=== PATIENT | male | born 1965 | race Caucasian/White ===

== ENCOUNTER 2016-08-22 10:26 | Emergency (ER) | payer OTHER ==
[~2016-08-22 10:26] MED LIST: LOPE2CAP PO
[2016-08-22 10:28] VITALS: BP 105/80; PULSE 104; RESP 16; O2SAT 99
--- NOTE | 2016-08-22 10:44 | ED.REPORT ---
HPI-Trauma Minor / Fall Date of Service Aug 22, 2016 ED Provider: Darren Duval DO 50 year old male presents to the ER accompanied by his girlfriend complaining of low back pain secondary to falling off of a roof yesterday. Associated symptom of mild neck pain. He states that he became dizzy prior to the fall. For the past three days he has been ill with nausea, vomiting, and diarrhea. He also complains of numbness of his toes for several years, worsening in the past few days. This morning he had some chest discomfort, shortness of breath and diaphoresis. Patient denies LOC, and head trauma secondary to the fall. He is a poor historian. Nursing Notes Stated Complaint: SICK Chief Complaint: General Complaint Nursing Notes Reviewed: Yes Allergies: Coded Allergies: No Known Allergies (Unverified , 03/02/16) Scheduled Aspirin (Aspirin) 325 Mg Tablet 325 MG PO DAILY Loperamide (Loperamide) 2 Mg Capsule 2 MG PO Q4H General Time Seen by MD: 10:36 Chief Complaint Fall (From Roof), Other (Back Pain) Hx Obtained From: Patient Arrived By: Walk-in Onset Occurred: Yesterday Symptom Duration: Since onset Caused by: Accidental, Fall from height... (6-10 feet) Context: Occurred at: Home injury Location: Back Quality: Painful Severity: Current: Moderate Severity: Maximum: Moderate Associated with: Reports: Nausea, Neck pain, Numb extremities, Shortness of breath, Vomiting, Denies: Headache, Loss of consciousness Pertinent Negative: Pt denies other symptoms Similar Sx Previous: No Past Medical History Past Medical History None Past Surgical History L arm Smoking History Former Smoker Social History Alcohol Use: In recovery Drug Use: In recovery Ambulatory Status Independent Review of Systems Constitutional: Denies: Chills, Fever Respiratory: Reports: Shortness of breath, Denies: Non-productive cough Musculoskeletal: Reports: Back pain, Lumbar pain, Neck pain, Denies: Extremity pain, Joint pain, Thoracic pain Skin: Reports Diaphoresis Neurologic: Reports: Numbness (Toes, bilaterally), Denies: Headache, Syncope Complete sys rev & neg: except as marked. GI: Reports: Diarrhea, Nausea, Vomiting Physical Exam Physical Exam Notes: Initial Vital Signs Vital Signs (First) Date Time Temp Pulse Resp B/P Pulse Ox O2 Delivery O2 Flow Rate FiO2 08/22/16 10:28 36.7 104 16 105/80 99 Room Air Initial VS: Reviewed Head / Eyes: Atraumatic, Normocephalic Respiratory: Breath sounds normal, Clear to auscultation, No respiratory distress Cardiovascular: Regular rate & rhythm, Heart sounds normal, Intact distal pulses Skin: Warm, Dry, No cyanosis General/Constitutional: Awake, Alert, Well developed, Well nourished Neck: Atraumatic, Supple, Full range of motion, No midline vertebral tend Cardiovascular: Heart rate NL, Regular rhythm, Heart sounds NL, Cap refill not delayed, Peripheral circulation NL, Pulses = bilaterally Abdomen: Soft, McBurney's non-tender, No guarding, No rebound, No distention Tenderness/Guarding/Rebound: Positive: Tender diffuse (mild) Back: Full range of motion Flank / Spine / Paraspinal: Positive: Lumbar spine tender... Upper Extremity / MS: Atraumatic, Inspection NL, Full range of motion, No swelling, Non-tender, No erythema, No deformity, Neurologic intact, Vascular intact Wrist / Hand: Atraumatic, Inspection NL, Full range of motion, No swelling, No erythema, No snuffbox tenderness, No deformity, Neurologic intact, Vascular intact, No clubbing/cyanosis Lower Extremity / Pelvis / MS: Inspection NL, No swelling, Non-tender, No erythema, No deformity, Neurologic intact, Vascular intact, No edema Ankle / Foot: Inspection NL, No swelling, No erythema, Non-tender, No deformity , Vascular intact Neurologic: Oriented X3, Speech NL, No motor deficits, No sensory deficits, CN II - XII intact Mild paresthesia, toes only, bilaterally. Interpretation & Diagnostics Lab Results Interpretation Result Diagram: 08/22/16 1045 08/22/16 1045 Test 08/22/16 10:45 08/22/16 11:58 08/22/16 12:35 White Blood Count 6.7th/mm3 (3.8-10.1) Red Blood Count 4.38mil/mm3 (4.40-5.80) Hemoglobin 12.6g/dL (13.8-17.2) Hematocrit 35.3% (41.0-50.0) Mean Corpuscular Volume 80.6fL (81-100) Mean Corpuscular Hemoglobin 28.8pg (27.0-35.0) Mean Corpuscular Hemoglobin Concent 35.7% (32.0-37.0) Red Cell Distribution Width 13.8% (12.3-15.4) Platelet Count 140bil/L (150-400) Neutrophils (%) (Auto) 59.7% (40-74) Lymphocytes (%) (Auto) 23.1% (14-46) Monocytes (%) (Auto) 15.6% (4-12) Eosinophils (%) (Auto) 0.7% (0-5) Basophils (%) (Auto) 0.6% (0-3) Sodium Level 131mEq/L (134-144) Potassium Level 3.4mEq/L (3.5-5.2) Chloride Level 93mEq/L (97-108) Carbon Dioxide Level 20mmol/L (18-29) Blood Urea Nitrogen 11mg/dL (6-24) Creatinine 0.70mg/dL (0.76-1.27) Estimat Glomerular Filtration Rate 127mL/min (>59) Glucose Level 127mg/dL (60-99) Lactic Acid Level 0.8mmol/L (0.4-2.0) Calcium Level 8.3mg/dL (8.5-10.1) Magnesium Level 2.2mg/dL (1.6-2.6) Total Bilirubin 0.9mg/dL (0.0-1.2) Aspartate Amino Transf (AST/SGOT) 29U/L (0-50) Alanine Aminotransferase (ALT/SGPT) 22U/L (0-44) Alkaline Phosphatase 91U/L (25-150) Pro-B-Type Natriuretic Peptide 1235pg/mL (0-121) Total Protein 7.3g/dL (6.4-8.4) Albumin 3.7g/dL (3.4-5.0) Total Creatine Kinase 180U/L (21-232) Creatine Kinase MB 5.1ng/mL (0.0-10.4) Creatine Kinase MB % % (0.0-5.0) Alcohols < 10mg/dL (0-10) Troponin T 0.113ug/L (0.0-0.011) ECG Interpretation ECG Interpretation: Sinus rhythm, rate 96 Time: 10:50 Interpreted by: ED physician ECG Interpretation: Inferior T wave flattening Q wave in lead 3 Time: 13:16 Interpreted by: ED physician X-Ray Chest Interpretation Chest Xray Interpretation: IMPRESSION: 1. No acute cardiopulmonary process is suspected. 2. Mild right diaphragmatic elevation. Dictated by: Adam Day M.D. on 08/22/2016 at 10:45 Approved by: Adam Day M.D. on 08/22/2016 at 10:46 View: Portable, 1 view Interpretation / Wet Read by: Interpret - Radiologist CT Head Interpretation IMPRESSION: 1. No acute intracranial abnormalities. Dictated by: Nelson Virk M.D. on 08/22/2016 at 12:18 Approved by: Nelson Virk M.D. on 08/22/2016 at 12:20 Study: Head CT no contrast Interpretation / Wet Read by: Interpret - Radiologist CT Abd / Pelvis Interpretation IMPRESSION: 1. No traumatic injuries identified on CT. 2. Thickened appendix measuring up to 11 mm in diameter. There is mild periappendiceal stranding and a trace amount of free fluid in the right lower quadrant. The CT findings to suggest early acute appendicitis. Recommend clinical correlation. 3. Splenomegaly. This finding is nonspecific and may be secondary to infectious, inflammatory or neoplastic etiology. Recommend clinical correlation and follow up. Dictated by: Nelson Virk M.D. on 08/22/2016 at 12:27 Approved by: Nelson Virk M.D. on 08/22/2016 at 12:42 Study type: Abdominal CT IV contrast Interpretation / Wet Read by: Interpret - Radiologist Re-Eval/Medical Decision Med Decision/Clinical Course 50-year-old otherwise healthy female with a rather vague story however he fell off the roof a few days ago and has had chest pain and shortness of breath to some degree over the last few days as well. No traumatic injuries can be identified. The patient reported some vague chest discomfort with shortness of breath when laying flat over the last few days. The patient has a significantly elevated troponin, unclear initially whether this represents non-ST elevation KS or some other pathology, however ultimately may be NSTEMI. Cardiology was contacted right after the troponin was resulted and recommended a stat echo. Serial troponins continued to be elevated. Ultimately this raises a stronger suspicion for non-ST elevation KS, however the patient repeatedly denies and refuses admission. Additionally the patient had CT findings of early appendicitis, he was not significantly tender in the right lower quadrant, did not have a positive McBurney's point, normal white blood cell count, and had a significantly elevated troponin concerning ultimately for non-STEMI. Emergent surgical consult was considered however given the minimal amount of abdominal tenderness and the underlying probable cardiac etiology this was not yet performed prior to the patient's leaving AGAINST MEDICAL ADVICE. Patient was informed at each step along the process as to the results of his laboratory and imaging studies and the medical recommendations for admission. He was resistant to admission and repeatedly refused, multiple attempts were made to understand the reasons why this patient refused medical care. Patient was of sound mind to make his own medical decisions. His girlfriend was at the bedside and was also unable to convince him to stay. Ultimately he left the hospital AGAINST MEDICAL ADVICE. He left prior to receiving discharge instructions. Source of Hx: Old records Re-Evaluation/Progress #1: Time of Eval: 11:51 Re-Evaluation/Progress Note: Completed interview. Re-Evaluation/Progress #2: Time of Eval: 12:38 Re-Evaluation/Progress Note: Discussed imaging results. Discussed elevated troponin and likelihood of a non-ST elevation KS, discussed inflammation in the appendix, repeat abdominal exam and the patient is not tender significantly at this time in the right lower quadrant. Discussed with the patient that he should be admitted. Patient is resistant to admission Re-Evaluation/Progress #3: Time of Eval: 13:05 Re-Evaluation/Progress Note: Discussed lab results and need for admission. Discussed with patient that his care had been discussed with cardiology who recommended an echocardiogram as well as other laboratory testing and probable admission. Patient is resistant to this plan. Patient's girlfriend is at bedside and is complicit with the patient's resistance to be admitted Re-Evaluation/Progress #4: Time of Eval: 13:16 Re-Evaluation/Progress Note: I expressed my extreme concern for the possibility of KS and reiterated the need for admission. Patient is minimally more receptive to this plan. Will discuss with girlfriend. Re-Evaluation/Progress #5: Time of Eval: 13:30 Re-Evaluation/Progress Note: Patient continues to become more receptive to admission. Re-Evaluation/Progress #6: Time of Eval: 13:36 Re-Evaluation/Progress Note: Discussed lab and radiology results and need for admission with the patient's girlfriend. Re-Evaluation/Progress #7: Time of Eval: 14:20 Re-Evaluation/Progress Note: Patient left AMA. Consultation #1: Referral / Consult Name: Nelson Virk MD, PhD Consulted With: On-call physician (Radiology) Call Returned at: 12:36 Note: Dr. Virk called to discuss imaging results. Consultation #2: Referral / Consult Name: Zac Curran MD Consulted With: Cardiology Call Returned at: 12:53 Note: Echocardiogram, BNP, no heparin. Agrees to consult. Consultation #3: Referral / Consult Name: Zac Curran MD Consulted With: Cardiology Call Returned at: 14:21 Counseled Regarding: Diagnosis, Lab results, Need for follow-up, When/why to return to ED Discharge & Departure Impression: Primary Impression: Non-ST elevation KS (NSTEMI) Disposition: AGAINST MEDICAL ADVICE Discharge Condition All VS Reviewed: Yes Condition: Stable Patient Instructions: Myocardial Infarction (DC) Additional Instructions: You are having a heart attack. You should stay in the hospital. If you go home there is a high likelihood that you will . You are choosing to leave AGAINST MEDICAL ADVICE. Additionally, your appendix looked inflamed on the CAT scan, however your heart takes priority needs further evaluation. You should take 325 mg of aspirin daily. Return to the ER immediately if your symptoms worsen. Referrals: [facility] (PCP) Crit Care Except Billable Proc Time Spent: 30-74 minutes Services Performed: Patient management by me, Time spent at bedside, Reviewing test results, Reviewing imaging, Discussing patient care, Documentation in record, Time with fam/surrogate Critical Care Notes: See MDM Scribkatey Attestation Portions of this note were transcribed by Kandy Dawson. I, Dr. Duval, personally performed the history, physical exam and medical decision-making; I reviewed and confirmed the accuracy of the information in the transcribed note. Signed by: Geraldo Sethi, 08/22/2016 and 14:22 copies to: [facility] Darren Duval DO Aug 22, 2016 10:44 KANDY DAWSON Aug 22, 2016 10:50
[2016-08-22 11:16] LABS: BASOPHILS % (AUTO) 0.6 % (0-3); EOSINOPHILS % (AUTO) 0.7 % (0-5); MONOCYTES % (AUTO) 15.6 % (4-12); Mean Corpuscular Hemoglobin 28.8 pg (27.0-35.0); Mean Corpuscular Volume 80.6 fL (81-100); NEUTROPHILS % (AUTO) 59.7 % (40-74); Platelet Count 140 bil/L (150-400)
[2016-08-22 11:17] VITALS: BP 97/72; PULSE 85; RESP 18; O2SAT 98
[2016-08-22] MEDS ORDERED: 0.9% Sodium Chloride 1,000 ML IV SCH (11:20)
[2016-08-22] MEDS ORDERED: Ondansetron 2 mg/mL 2 mL Inj IVPUSH PRN (11:20)
[2016-08-22 11:37] LABS: Magnesium 2.2 mg/dL (1.6-2.6)
[2016-08-22 11:45] LABS: TROPONIN T 0.117 ug/L (0.0-0.011)
--- NOTE | 2016-08-22 11:47 | DRSVH ---
PROCEDURE: X-RAY CHEST ONE VIEW, PORTABLE ([id number]) INDICATIONS: SHORTNESS OF BREATH TECHNIQUE: One view of the chest was acquired. COMPARISON: None. FINDINGS: Surgical changes and devices: None. Lungs and pleura: There are low lung volumes. No focal consolidation, effusion, or pneumothorax is e vident. There is elevation of the right diaphragm. Mediastinum: Mediastinal contours appear normal. Heart size is normal. Bones and chest wall: No suspicious bony lesions. Degenerative changes of the right shoulder and sp ine are present. Overlying soft tissues appear unremarkable. IMPRESSION: 1. No acute cardiopulmonary process is suspected. 2. Mild right diaphragmatic elevation. Dictated by: Adam Day M.D. on 08/22/2016 at 10:45 Approved by: Adam Day M.D. on 08/22/2016 at 10:46
[2016-08-22 12:17] VITALS: BP 98/71; PULSE 92
--- NOTE | 2016-08-22 12:22 | DRSVH ---
PROCEDURE: CT BRAIN WITHOUT CONTRAST ([id number]) INDICATIONS: fall off roof TECHNIQUE: Noncontrast 4.5 mm thick angled axial sections acquired from the foramen magnum to the vertex, with c oronal reformats. COMPARISON: [facility], CT, BRAIN W/O CONTRAST, 12/03/2007, 18:42. FINDINGS: Image quality: Excellent. CSF spaces: Basal cisterns are patent. No extra-axial fluid collections. Ventricles are normal in size and shape. Brain: No midline shift. No intracranial masses or hemorrhage. Garcia-white matter interface is norm al. Skull and face: Calvarium and visualized facial bones are intact, without suspicious lesions. Code nasal bone fracture appears unchanged. Sinuses: Visualized sinuses and mastoids are clear. IMPRESSION: 1. No acute intracranial abnormalities. Dictated by: Nelson Virk M.D. on 08/22/2016 at 12:18 Approved by: Nelson Virk M.D. on 08/22/2016 at 12:20
[2016-08-22 12:27] LABS: Creatine Kinase 180 U/L (21-232)
--- NOTE | 2016-08-22 12:43 | DRSVH ---
PROCEDURE: CT CHEST, ABDOMEN AND PELVIS WITH CONTRAST ([id number]) INDICATIONS: fall, back pain, hypotension TECHNIQUE: After the administration of intravenous contrast, 5 mm thick sections acquired from the lung apices t o the symphysis. 5 mm thick coronal and sagittal reformats were acquired. Additional 7 mm thick cor onal maximum intensity projection (MIP) reformats acquired through the lungs. Optional 10-minute del ayed imaging may be performed from the kidneys to the bladder. For radiation dose reduction, the fol lowing was used: automated exposure control, adjustment of mA and/or kV according to patient size. COMPARISON: None. FINDINGS: Image quality: Excellent. CHEST: Lungs: No pulmonary contusions or lacerations. No acute airspace opacities. No pneumothorax or hem othorax. Central and peripheral airways appear patent and normal in caliber. Mediastinum: No mediastinal hematomas. Heart size is normal. No pericardial effusion. Thoracic ao rta and pulmonary arteries demonstrate normal size and enhancement. No mediastinal or hilar adenopat hy. Esophagus is normal in caliber. No hiatal hernia. Chest wall: No rib fractures. No subcutaneous emphysema. No axillary or supraclavicular adenopathy . Thyroid gland is normal. ABDOMEN: Solid organs: Spleen is enlarged measuring 15 cm in length. Liver is normal in size and enhancement, without lacerations. Gallbladder is normal. Biliary system is non-dilated. Pancreas enhances norm ally, without transection. No adrenal hematomas. Both kidneys enhance normally, without hydronephro sis or lacerations. Peritoneum and bowel: Appendix is thickened measuring up to 11 mm in diameter. There is mild periapp endiceal fat stranding and a trace amount of free fluid in the right lower quadrant. The CT findings suggest early acute appendicitis.. No free air. Unenhanced bowel loops demonstrate normal wall thick ness and caliber. Nodes and vessels: No retroperitoneal or mesenteric adenopathy. Aorta and inferior vena cava are no rmal in size and enhancement. Miscellaneous: No ventral hernias. PELVIS: Genitourinary: Bladder wall thickness is normal. Miscellaneous: No inguinal hernias or adenopathy. Bones: Pelvic ring and hip joints appear intact. No vertebral compression fractures. IMPRESSION: 1. No traumatic injuries identified on CT. 2. Thickened appendix measuring up to 11 mm in diameter. There is mild periappendiceal stranding and a trace amount of free fluid in the right lower quadrant. The CT findings to suggest early acute appe ndicitis. Recommend clinical correlation. 3. Splenomegaly. This finding is nonspecific and may be secondary to infectious, inflammatory or angelica plastic etiology. Recommend clinical correlation and follow up. Dictated by: Nelson Virk M.D. on 08/22/2016 at 12:27 Approved by: Nelson Virk M.D. on 08/22/2016 at 12:42
[2016-08-22 12:47] VITALS: BP 95/61; PULSE 98
[2016-08-22 14:10] VITALS: BP 92/70; PULSE 96
[2016-08-22] MEDS ORDERED: ASPI325T32 PO (14:19)
--- NOTE | 2016-08-22 15:00 | DRSVH ---
[facility] [address] [place] [address] Echocardiogram Report Name: VINNIE RAMSAY LStudy Date: 08/22/2016 Height: 72 in Hospital Exam Location: [facility] Weight: 180 lb Gender: Male BSA: 2.0 m2 : 1965 Age: 50 yrs BP: 95/61 m mHg Reason For Study: Elevated BNP Performed By: Padilla Fuentes Referring Physician: JUSTUS HELM Interpretation Summary 1) Mild concentric left ventricular hypertrophy with normal size and borderline reduced systolic function (EF about 50%). 2) Normal right ventricular size and function. 3) Mild hypokinesis of the basal to mid anterolateral wall as noted by decreased endocardial thickening 4) No significant valvular abnormalities. 5) No prior Echo available for comparison. Procedure: A two-dimensional transthoracic echocardiogram with color flow and Doppler was performed. The study quality was technically adequate. There is no prior echocardiogram noted for this patient. The patient was in normal sinus rhythm during the exam. The heart rate ranged between 85-99 bpm during the study. Left Ventricle: The left ventricle is grossly normal size. There is mild concentric left ventricular hypertrophy. Proximal septal thickening is noted. Left ventricular ejection fraction is estimated to be 50. Left ventricular systolic function is borderline reduced. Mild hypokinesis of the basal to mid anterolateral wall as noted by decreased endocardial thickening. Assessment of diastolic parameters indicates a relaxation abnormality of the left ventricle, consistent with normal filling pressures. Right Ventricle: The right ventricle is normal in size, thickness and function. Atria: The left atrial size is normal. Right atrial size is normal. The interatrial septum is intact with no evidence for an atrial septal defect. Mitral Valve: The mitral valve is normal. There is trace mitral regurgitation. Aortic Valve: The aortic valve is normal in structure and function. There is no aortic valve stenosis. No aortic regurgitation is present. Tricuspid Valve: The tricuspid valve is not well visualized, but is grossly normal. Pulmonary artery pressures cannot be estimated because of the lack of a measurable TR jet velocity. Pulmonic Valve: The pulmonic valve is not well seen, but is grossly normal. There is no pulmonic valvular regurgitation. Great Vessels: The aortic root is normal size. The ascending aorta is at the upper limits of normal in size. The pulmonary artery is normal size. The IVC is of normal diameter and collapses greater than 50% with a sniff. This suggests a low right atrial pressure of 3 mm Hg. Pericardium/ Pleura There is no pericardial effusion. There is no pleural effusion. MMode/2D Measurements & Calculations LVIDd: 5.0 cm RA long axis LVOT diam LVIDs: 3.7 cm LA A2 area: 16.7 cm FS: 25.1 % LA A4 area: 18.1 cm RA area Ao root diam IVSd: 1.1 cm LA length (vol): 5.4 cm LVPWd: 1.2 cm LA vol: 47.5 ml : 13.9 cm Aortic Jxn LA vol index RA vol: 37.3 ml RA asc Aorta : 18.3 mm2 Diam: 3.3 cm IVC diam: 2.1 cm LV alvarez. diameter/BSA LV sys. diameter/BSA RVD1 (basal) RVD2 (mid) (cm/m^2): 2.5 (cm/m^2): 1.8 : 2.4 cm TAPSE: 2.0 cm Doppler Measurements & Calculations Ao V2 max MV E max nathaniel MV E/A: 0.95 PA V2 max : 118.0 cm/sec : 81.3 cm/sec Med Peak E' Nathaniel : 72.8 cm/sec Ao max PG MV A max nathaniel PA mean PG : 5.6 mmHg : 85.2 cm/sec E/E' med: 13.0 Ao mean PG Lat Peak E' Nathaniel PA Accel Time : 0.11 sec LVOT Max Nathaniel E/E' lat: 9.3 : 99.5 cm/sec E/e' average JONE(I,D): 3.7 cm sev ratio MV dec time MV P1/2t max nathaniel Ao V2 mean LV V1 max PG : 0.18 sec : 94.6 cm/sec Ao V2 VTI: 21.4 cm LV V1 VTI JONE(V,D): 3.3 cm2 : 20.1 cm PA V2 mean JONE indexed to BSA : 54.4 cm/sec (cm^2/m^2): 1.8 Reading Physician:02:59 PM
== END 2016-08-22 14:22 | disposition left against medical advice (07) ==
LOC: SED 10:26 → MPC 14:06 → UNDOADMOB 14:06
DX: I21.4 Non-ST elevation (NSTEMI) myocardial infarction (principal); W13.2XXA Fall from, out of or through roof, initial encounter; Y92.008 Other place in unspecified non-institutional (private) residence as the place of occurrence of the external cause; Y93.9 Activity, unspecified; Y99.9 Unspecified external cause status; Z79.82 Long term (current) use of aspirin; Z87.891 Personal history of nicotine dependence
CPT/HCPCS: 70450; 71010; 71260; 74177; 80053; 82550; 82553; 83605; 83735; 83880; 84484; 85025; 93005; 96360; 96361; 99291; J7030; Q9967

== ENCOUNTER 2016-08-23 07:16 | Inpatient (IN) | payer OTHER ==
[~2016-08-23] VITALS: Ht 184.2 cm; Wt 86.9 kg
[2016-08-23] VITALS (9 sets, daily range): BP systolic 93–109; BP diastolic 58–71; PULSE 78–108; RESP 13–18; O2SAT 98–100
[~2016-08-23 07:16] MED LIST changes: +ASPI325T32 PO
--- NOTE | 2016-08-23 07:18 | ED.REPORT ---
HPI-General Illness Date of Service Aug 23, 2016 ED Provider: Osbaldo Solis MD 50 year old male with no known past medical history who presents to the ER due to 6/10 R shoulder and non-radiating midline lumbar pain that has been present for 3 days. Last week the patient had a GI illness which has since resolved. Three days ago the patient was brittney when he became dizzy and fell approximately 8-10 feet. He developed the pain after the fall. Pt was seen in the ER yesterday and had a full trauma workup. CT head, CT chest abdomen pelvis are unremarkable as well. Pt had an elevated troponin, Initial ECG NSR, 2nd Inferior T wave flattening and Q wave in lead 3, and an abnormal echocardiogram. Additionally abd CT showed no traumatic injuries, thickened appendix and splenomegaly. After recommending admission, the patient left AMA. Since he left the patients symptoms have been constant. Pain max 8/10 with movement. Improved with ASA. Pt denies CP and SOB. Pt's father had CABG at age 70. Nursing Notes Stated Complaint: POSS HEART ATTACK Nursing Notes Reviewed: Yes Allergies: Coded Allergies: No Known Allergies (Unverified , 03/02/16) Scheduled Aspirin (Aspirin) 325 Mg Tablet 325 MG PO DAILY Loperamide (Loperamide) 2 Mg Capsule 2 MG PO Q4H General Time Seen by MD: 07:16 Chief Complaint Other (R shoulder and L back) Hx Obtained From: Patient Arrived By: Walk-in Sudden in Onset?: No Onset Occurred: 3 days ago Symptom Duration: Since onset Location: : Shoulder right Quality: Painful Severity: Current: Pain level 6 out of 10 Severity: Maximum: Pain level 8 out of 10 Associated with: Denies: Chest pain, Shortness of breath Exacerbated by: Moving affected area Recent Healthcare: Recent doctor visit Similar Sx Previous: Yes Past Medical History Past Medical History None Denies: Cancer, Diabetes mellitus, Hypertension, Stroke Past Surgical History L arm Smoking History Former Smoker Social History Alcohol Use: In recovery Drug Use: Meth (1 week ago) Ambulatory Status Independent Review of Systems Full Review of Systems Constitutional: Denies: Chills, Fever Respiratory: Denies: Non-productive cough, Shortness of breath Cardiovascular: Denies: Chest pain GI: Denies: Abdominal pain, Vomiting Musculoskeletal: Reports: Back pain, Joint pain Skin: Denies Diaphoresis Neurologic: Denies: Change LOC, Headache, Numbness Complete sys rev & neg: except as marked. Physical Exam Vital Signs Vital Signs Date Time Temp Pulse Resp B/P Pulse Ox O2 Delivery O2 Flow Rate FiO2 08/23/16 08:09 87 13 97/65 98 Room Air 08/23/16 07:18 35.6 108 14 109/71 98 Initial VS: Reviewed Head / Eyes: Atraumatic, Normocephalic, PERRL ENT: Mucous membranes moist, Conjunctiva normal, No scleral icterus Neck: Supple, Full range of motion Respiratory: Breath sounds normal, Clear to auscultation, No respiratory distress Cardiovascular: Regular rate & rhythm, Heart sounds normal, Intact distal pulses Abdomen / GI: Soft, Non-tender, No guarding, No rebound, No distention Extremities: Vascular intact, Neuro intact, No swelling (No peripheral edema) Skin: Warm, Dry, No cyanosis Neurologic: Alert, Oriented, Nonfocal General/Constitutional: Awake, Alert Back: Inspection NL, No midline vertebral tend, No CVA tenderness Interpretation & Diagnostics Lab Results Interpretation Result Diagram: 08/23/16 0739 08/23/16 0739 Test 08/23/16 07:39 White Blood Count 6.2th/mm3 (3.8-10.1) Red Blood Count 3.99mil/mm3 (4.40-5.80) Hemoglobin 11.3g/dL (13.8-17.2) Hematocrit 32.9% (41.0-50.0) Mean Corpuscular Volume 82.5fL (81-100) Mean Corpuscular Hemoglobin 28.3pg (27.0-35.0) Mean Corpuscular Hemoglobin Concent 34.3% (32.0-37.0) Red Cell Distribution Width 13.7% (12.3-15.4) Platelet Count 151bil/L (150-400) Neutrophils (%) (Auto) 64.9% (40-74) Lymphocytes (%) (Auto) 20.8% (14-46) Monocytes (%) (Auto) 12.4% (4-12) Eosinophils (%) (Auto) 1.1% (0-5) Basophils (%) (Auto) 0.5% (0-3) Sodium Level 137mEq/L (134-144) Potassium Level 3.2mEq/L (3.5-5.2) Chloride Level 99mEq/L (97-108) Carbon Dioxide Level 24mmol/L (18-29) Blood Urea Nitrogen 8mg/dL (6-24) Creatinine 0.74mg/dL (0.76-1.27) Estimat Glomerular Filtration Rate 119mL/min (>59) Glucose Level 116mg/dL (60-99) Calcium Level 8.0mg/dL (8.5-10.1) Magnesium Level 2.2mg/dL (1.6-2.6) Total Bilirubin 0.6mg/dL (0.0-1.2) Aspartate Amino Transf (AST/SGOT) 23U/L (0-50) Alanine Aminotransferase (ALT/SGPT) 19U/L (0-44) Alkaline Phosphatase 90U/L (25-150) Troponin T 0.144ug/L (0.0-0.011) Total Protein 6.5g/dL (6.4-8.4) Albumin 3.5g/dL (3.4-5.0) General Lab Results Interp 1: Labs reviewed ECG Interpretation Time: 07:26 Interpreted by: ED physician Rhythm / Conduction: Tachycardia (rate 101) X-Ray Chest Interpretation Chest Xray Interpretation: IMPRESSION: No acute cardiopulmonary abnormality Dictated by: Robin Almeida M.D. on 08/23/2016 at 8:27 View: Portable, 1 view Interpretation / Wet Read by: Interpret - Radiologist Re-Eval/Medical Decision Med Decision/Clinical Course My interpretation of this very unusual presentation is that this gentleman probably had a subacute or acute myocardial infarction last week and that his fall from the roof top was perhaps related to that. In any case, he has objective abnormalities and a non-STEMI and requires further evaluation. This was offered to him yesterday but he left AMA. Return to the emergency department today because his female patient day coordinator "talked him into it". He has the appearance of one who uses methamphetamines or heroin or pulse but denies this but on further questioning does admit to methamphetamines within the past week or 2. This female that accompanies him falls asleep mid sentence and has pinpoint pupils and when she was questioned regarding heroin use she denied it multiple times. My suspicion is that there is active drug use and both of these individuals which may contribute to risk of acute myocardial infarction. Source of Hx: Old records Summary of Info: Echo Interpretation Summary 1) Mild concentric left ventricular hypertrophy with normal size and borderline reduced systolic function (EF about 50%). 2) Normal right ventricular size and function. 3) Mild hypokinesis of the basal to mid anterolateral wall as noted by decreased endocardial thickening 4) No significant valvular abnormalities. 5) No prior Echo available for comparison. CT abd IMPRESSION: 1. No traumatic injuries identified on CT. 2. Thickened appendix measuring up to 11 mm in diameter. There is mild periappendiceal stranding and a trace amount of free fluid in the right lower quadrant. The CT findings to suggest early acute appendicitis. Recommend clinical correlation. 3. Splenomegaly. This finding is nonspecific and may be secondary to infectious, inflammatory or neoplastic etiology. Recommend clinical correlation and follow up. Head CT and chest x-ray unremarkable. Time of Eval: 08:42 Re-Evaluation/Progress Note: Pt resting comfortably. Updated pt of labs, ECG and imaging results. Recommended admission. Pt understands and agrees with plan. All questions addressed. Consultation #1: Referral / Consult Name: Benjamin Barrios DO Consulted With: Hospitalist Call Returned at: 09:11 Court Transcriber: Will see patient, Agrees with eval, Agrees with plan, Accepts admit Consultation #2: Referral / Consult Name: Zac Curran MD Consulted With: Detail Assembler: Will see patient Counseled Regarding: Diagnosis, Lab results, Need for admission Discharge & Departure Primary Impression: Non-ST elevation MN (NSTEMI) Disposition: ADMITTED TO HOSPITAL Discharge Condition All VS Reviewed: Yes Referrals: [facility] (PCP) Scribe Attestation Portions of this note were transcribed by Alicja Valdivia. I, (Dr. Solis) personally performed the history, physical exam and medical decision-making; I reviewed and confirmed the accuracy of the information in the transcribed note. Signed by: Alicja Valdivia. Geraldo, 08/23/2016, 0843 copies to: [facility] Osbaldo Solis MD Aug 23, 2016 07:18 Alicja Valdivia Aug 23, 2016 07:26
[2016-08-23 07:47] LABS: BASOPHILS % (AUTO) 0.5 % (0-3); EOSINOPHILS % (AUTO) 1.1 % (0-5); MONOCYTES % (AUTO) 12.4 % (4-12); Mean Corpuscular Hemoglobin 28.3 pg (27.0-35.0); Mean Corpuscular Volume 82.5 fL (81-100); NEUTROPHILS % (AUTO) 64.9 % (40-74); Platelet Count 151 bil/L (150-400)
[2016-08-23 08:28] LABS: Magnesium 2.2 mg/dL (1.6-2.6)
--- NOTE | 2016-08-23 08:28 | DRSVH ---
PROCEDURE: X-RAY CHEST ONE VIEW, PORTABLE ([id number]) INDICATIONS: Chest Pain TECHNIQUE: One view of the chest was acquired. COMPARISON: 08/22/2016 FINDINGS: Surgical changes and devices: None. Lungs and pleura: No pleural effusions or pneumothorax. Lungs are clear. Mediastinum: Mediastinal contours appear normal. Heart size is normal. Bones and chest wall: No suspicious bony lesions. Overlying soft tissues appear unremarkable. IMPRESSION: No acute cardiopulmonary abnormality Dictated by: Robin Almeida M.D. on 08/23/2016 at 8:27 Approved by: Robin Almeida M.D. on 08/23/2016 at 8:27
[2016-08-23 08:29] LABS: TROPONIN T 0.144 ug/L (0.0-0.011)
[2016-08-23] MEDS ORDERED: Heparin 5,000 Unit/mL Inj IVPUSH ONE (09:30)
[2016-08-23] MEDS ORDERED: Ondansetron 2 mg/mL 2 mL Inj IVPUSH PRN ×2 (09:30→10:50)
[2016-08-23] MEDS ORDERED: Heparin 5,000 Unit/mL Inj IVPUSH PRN ×2 (09:30→11:00)
[2016-08-23] MEDS ORDERED: Heparin 25K Unit/500mL 0.45 NS 25,000 UNIT in IV Premix 1 EACH IV SCH ×2 (09:30→11:00)
[2016-08-23] MEDS ORDERED: Alum-Mag Hydrox-Simeth 30 mL Suspension PO PRN ×2 (09:30→10:50)
--- NOTE | 2016-08-23 10:00 | NUR ---
[facility] Admit Patient admitted to [facility] via gurney, accompanied by Aliza Roldan RN - admit nurse. A/O x4, with Heparin drip ongoing, patent and infusing well. Patient oriented to room and unit. Denies any pain or any chest discomfort at this time. Independent, with steady gait. Patient made comfortable, will continue to monitor. Addendum: 08/23/16 at 1902 by TANNA QUAN RN PTT RESULT RELAYED TO DR. SIGALA, HEPARIN DRIP FOLLOWED PER PROTOCOL. CARDIAC DIET OBTAINED, NPO POST MID NOC FOR SCHEDULED STRESS TEST. PT INSTRUCTED.
[2016-08-23] MEDS ORDERED: Polyethylene Glycol (PEG) 17 Gm Powder PO PRN (10:50)
--- NOTE | 2016-08-23 11:13 | PCM.HPMED ---
Subjective Date of Service Aug 23, 2016 Primary Provider: Admitting Physician: Benjamin Barrios DO [facility]ending [facility]: Benjamin Barrios DO Admit Status: From the Emergency Department Chief Complaint: chest pain, low back pain History of Present Illness: 50 yo male with hx of methamphetamin and tobacco use presented to ER with peristent l back pain and R shoulder pain - with a recent traumatic hx of falling off a 10ft roof 4 days ago. Pt presented to ED yesterday with imaging including CT head/abd/pelvis - unremarkable/neg for fx but showed an elev troponin with an abnormal echo. Pt left AMA but states he returned because he wanted to be treated and he needs to think about his grandkids/kids. Pt denies other pertinent medical hx, denies f/c/cp/sob - did have previous nausea/ vomiting x 3 days approximately 1 week ago per pt but denies significant anginal sx. does have some LE edema, worse on the left - and last meth use was about 1 week ago. he denies IVDA, smokes meth approximately 7x/mo for >35 yrs. denies allergies to meds In the ER, ekg revealed some inf TW flattening and Q wave in V3, with a prev abnl echo yesterday. Pt took 2 full strength asa this morning but still rates his pain 8/10 in R shoulder and low back. Review of Systems: complete ROS unremarkable unless listed in HPI Allergies Coded Allergies: No Known Allergies (Unverified , 08/23/16) Home Medications pt denies taking medications PMH methamphetamine use x 35 yrs - approx 7x/mo tobacco use - quit 2 yrs ago, with [id number] hx Surgical History L arm surgery Family History mom: breast/colon cancer - passed dad: possible CABG at 70 yo? denies cva, dm in family Social History Hx Alcohol Use: Yes (Not drinking any more) Hx Substance Use: Yes (Last use meth 1 week ago) Smoking Status: Former Smoker Exam Vital Signs Vital Sign - Last Date Time Temp Pulse Resp B/P Pulse Ox O2 Delivery O2 Flow Rate FiO2 08/23/16 10:18 80 08/23/16 09:50 35.6 16 96/66 99 Room Air Exam Gen: nad, a/ox3 resting comfortably HEENT: edentulous on upper mouth, no ulcerations, or icteric sclera, no LAD Neck: no jvd noted, no thyromegaly or LAD CV: rr, no r/c/m/g - distant heart sounds Pulm: ctab no w/r/r Back: mild spinous tendernss in L3-L4 region - no ulcerations/step offs Extrem: 1+-2 pitting edema on L>R, sensation intact, pedal pulses 2+ b/l, warm Psych: soft spoken, mood and affect nl Neuro: cn 2-12 GI, no focal deficits Skin: scattered tattoos without ulcerations Lab and Diagnostics Result Diagram: 08/23/16 0739 08/23/16 0739 X-Rays, CTs and MRIs CT head: FINDINGS: Image quality: Excellent. CSF spaces: Basal cisterns are patent. No extra-axial fluid collections. Ventricles are normal in size and shape. Brain: No midline shift. No intracranial masses or hemorrhage. Garcia-white matter interface is normal. Skull and face: Calvarium and visualized facial bones are intact, without suspicious lesions. Code nasal bone fracture appears unchanged. Sinuses: Visualized sinuses and mastoids are clear. IMPRESSION: 1. No acute intracranial abnormalities. Dictated by: Nelson Virk M.D. on 08/22/2016 at 12:18 EDURE: CT CHEST, ABDOMEN AND PELVIS WITH CONTRAST ([id number]) INDICATIONS: fall, back pain, hypotension TECHNIQUE: After the administration of intravenous contrast, 5 mm thick sections acquired from the lung apices to the symphysis. 5 mm thick coronal and sagittal reformats were acquired. Additional 7 mm thick coronal maximum intensity projection (MIP) reformats acquired through the lungs. Optional 10-minute delayed imaging may be performed from the kidneys to the bladder. For radiation dose reduction, the following was used: automated exposure control, adjustment of mA and/or kV according to patient size. COMPARISON: None. FINDINGS: Image quality: Excellent. CHEST: Lungs: No pulmonary contusions or lacerations. No acute airspace opacities. No pneumothorax or hemothorax. Central and peripheral airways appear patent and normal in caliber. Mediastinum: No mediastinal hematomas. Heart size is normal. No pericardial effusion. Thoracic aorta and pulmonary arteries demonstrate normal size and enhancement. No mediastinal or hilar adenopathy. Esophagus is normal in caliber. No hiatal hernia. Chest wall: No rib fractures. No subcutaneous emphysema. No axillary or supraclavicular adenopathy. Thyroid gland is normal. ABDOMEN: Solid organs: Spleen is enlarged measuring 15 cm in length. Liver is normal in size and enhancement, without lacerations. Gallbladder is normal. Biliary system is non-dilated. Pancreas enhances normally, without transection. No adrenal hematomas. Both kidneys enhance normally, without hydronephrosis or lacerations. Peritoneum and bowel: Appendix is thickened measuring up to 11 mm in diameter. There is mild periappendiceal fat stranding and a trace amount of free fluid in the right lower quadrant. The CT findings suggest early acute appendicitis.. No free air. Unenhanced bowel loops demonstrate normal wall thickness and caliber. Nodes and vessels: No retroperitoneal or mesenteric adenopathy. Aorta and inferior vena cava are normal in size and enhancement. Miscellaneous: No ventral hernias. PELVIS: Genitourinary: Bladder wall thickness is normal. Miscellaneous: No inguinal hernias or adenopathy. Bones: Pelvic ring and hip joints appear intact. No vertebral compression fractures. IMPRESSION: 1. No traumatic injuries identified on CT. 2. Thickened appendix measuring up to 11 mm in diameter. There is mild periappendiceal stranding and a trace amount of free fluid in the right lower quadrant. The CT findings to suggest early acute appendicitis. Recommend clinical correlation. 3. Splenomegaly. This finding is nonspecific and may be secondary to infectious , inflammatory or neoplastic etiology. Recommend clinical correlation and follow up. Dictated by: Nelson Virk M.D. on 08/22/2016 at 12:27 12-lead ECG SR, TW flattening in lateral leads, borderline QTc Cardiac Echo Impressions 4/3 echo Interpretation Summary 1) Mild concentric left ventricular hypertrophy with normal size and borderline reduced systolic function (EF about 50%). 2) Normal right ventricular size and function. 3) Mild hypokinesis of the basal to mid anterolateral wall as noted by decreased endocardial thickening 4) No significant valvular abnormalities. 5) No prior Echo available for comparison. Assessment & Plan 50 yo male with hx of meth and tob use presenting to ER with shoulder pain/ positional cp with e/o NSTEMI NSTEMI, POA -heparin gtt -Dr. Curran of cardiology on consult -trend troponins -pt took two ASA 325mg this AM -start simvastatin 20mg -start asa 81mg tomorrow -lipid panel, a1c -tsh -tele -nuclear exercise stress Methamphetamine use -Urine drug screen ordered Appendiceal abnormality on CT 08/22 which mentions early appendicitis -d/w radiology who recommends f/u scan in 1 mo - no clinical e/o acute appendicitis with no leukocystosis or abdominal tenderness at all Pain Evaluation: Adequate Pain Control GI Prophylaxis: H2 andreina VTE Prophylaxis: Other (on heparin gtt) Resuscitation Status: CPR: Attempt Resuscitation Time spent 45 minutes spent with eval and mgmt including admission Benjamin Barrios DO Aug 23, 2016 11:13
[2016-08-23 11:45] LABS: BASOPHILS % (AUTO) 0.4 % (0-3); EOSINOPHILS % (AUTO) 3.3 % (0-5); MONOCYTES % (AUTO) 13.4 % (4-12); Mean Corpuscular Hemoglobin 28.3 pg (27.0-35.0); Mean Corpuscular Volume 82.9 fL (81-100); NEUTROPHILS % (AUTO) 45.3 % (40-74); Platelet Count 139 bil/L (150-400)
--- NOTE | 2016-08-23 14:53 | NUR ---
Social Work Note - Screening: D/A: EMR reviewed, the Pt is a 50 y/o male that was admitted for ACS. The Pt presented to the ED on 08/22/16 for same concerns, left AMA. The Pts PCP is listed as [facility] and his insurance is [employer]. SW met with the Pt to explain role and discuss discharge planning. The Pt reports that he goes back and forth from his girlfriends home to his childrens homes, all located in [place]. He states that he has three daughters, Pt identifies his NOK listed as his identified support person. The Pt does not have an Advanced Directive, paperwork explored and provided. The Pt was recently seen in the ED on 08/22/16 for back and neck pain due to a recent fall from a roof. He ultimately left AMA and returned today due to ongoing concerns related to this pain. History of meth use noted in the Pts EMR. The Pt reports that he has used meth on and off for over 30 years with his most recent use about one week ago. He is not interested in a CD assessment/assistance at this time, but is interested in resources. CD resources to be provided. SW explored the possibility of mental health assistance, the Pt reports that he has not yet used these types of resources but is interested in receiving information. Nursing reports that the Pt has a history of bipolar disorder, not taking medications at this time. MH resources to be provided. SW to follow up with Pt regarding MH/CD resources. P: The Pt is not medically stable for discharge, will likely discharge home with family providing POV transportation. SW to follow up with MH/CD resources. SW to follow. JEREMIAH Eugene Human Relations Professor JEREMIAH Farmer
[2016-08-23] MEDS ORDERED: 0.9% Sodium Chloride 1,000 ML IV SCH (15:55)
[2016-08-24 01:59] VITALS: BP 96/62; PULSE 85; RESP 16; O2SAT 98
[2016-08-24] MEDS ORDERED: 0.9% Sodium Chloride 100 ML ONE (03:29)
[2016-08-24 05:54] VITALS: BP 103/61; PULSE 89; RESP 17; O2SAT 96
[2016-08-24 06:10] LABS: BASOPHILS % (AUTO) 0.7 % (0-3); EOSINOPHILS % (AUTO) 2.5 % (0-5); MONOCYTES % (AUTO) 9.1 % (4-12); Mean Corpuscular Hemoglobin 27.9 pg (27.0-35.0); Mean Corpuscular Volume 84.4 fL (81-100); NEUTROPHILS % (AUTO) 63.1 % (40-74); Platelet Count 176 bil/L (150-400)
--- NOTE | 2016-08-24 06:39 | NUR ---
Heparin gtt Continues non-tharapeutic gave bolus and increased rate now at 1450units/hr
[2016-08-24 06:47] LABS: Magnesium 2.3 mg/dL (1.6-2.6)
[2016-08-24 06:49] LABS: TROPONIN T 0.113 ug/L (0.0-0.011)
[2016-08-24 09:04] VITALS: PULSE 90
[2016-08-24 10:00] VITALS: BP 95/62; PULSE 89; RESP 22; O2SAT 96
[2016-08-24 10:14] LABS: Creatine Kinase 42 U/L (21-232)
--- NOTE | 2016-08-24 11:07 | NUR ---
Heparin PTT result of 43.6, Will hold heparin drip at this time per Dr. Barrios, awaiting cardiology consult and stress test. Addendum: 08/24/16 at 1836 by TANNA QUAN RN Patient completed stress test this pm. Discharge notes and instructions given and well understood by patient. Talk to brother about the importance of follow up appointment to the residency clinic on August 31, 2016 @ 3:50 pm. Awaiting for his ride home.
--- NOTE | 2016-08-24 14:32 | NUR ---
Social Work Note - Continued Discharge Planning: D/A: The Pt is a 50 y/o male that was admitted for ACS. SW met with the Pt on 08/24/16 to explain role and discuss discharge planning. SW also explored any possible CD/MH concerns, resources discussed and offered. Pt was agreeable for CD/MH resources. SW met with the Pt and the Pts SO to offer additional support and assistance. The Pt is not interested in additional assistance, but is still agreeable for resources. CD/MH resource lists provided. SW to follow-up for CD Screening after Cardiology consult and stress test. P: The Pt will likely discharge home via family POV when medically stable. SW to follow up with Pt after stress test for CD screening. SW will continue to follow. JEREMIAH Eugene Baling Machine Operator JEREMIAH Davey
--- NOTE | 2016-08-24 15:09 | PCM.PNMED ---
Subjective Date of Service Aug 24, 2016 Subjective no cp, no acute events overnight - trop elev albeit neg ckmb. cardiology consulted and stress test sched today - heparin gtt overnight dc'd per cardiology Exam Vital Signs Vital Sign - Last Date Time Temp Pulse Resp B/P Pulse Ox O2 Delivery O2 Flow Rate FiO2 08/24/16 10:00 36.9 89 22 95/62 96 Room Air Intake and Output 08/23/16 08/23/16 08/24/16 Cumulative From/Thru 15:00 23:00 07:00 08/23/16 07:18 - 08/24/16 06:23 Intake Total 1308 ml 1440 ml 2748 ml Balance 1308 ml 1440 ml 2748 ml Intake Oral 1075 ml 240 ml 1315 ml IV Total 233 ml 1200 ml 1433 ml # Voids 3 3 Exam Gen: nad, a/ox3 resting comfortably HEENT: edentulous on upper mouth, no ulcerations, or icteric sclera, no LAD Neck: no jvd noted, no thyromegaly or LAD CV: rr, no r/c/m/g - distant heart sounds Pulm: ctab no w/r/r Back: mild spinous tendernss in L3-L4 region - no ulcerations/step offs Extrem: 1+-2 pitting edema on L>R, sensation intact, pedal pulses 2+ b/l, warm Psych: soft spoken, mood and affect nl Neuro: cn 2-12 GI, no focal deficits Skin: scattered tattoos without ulcerations Lab and Diagnostics Result Diagram: 08/24/16 0555 08/24/16 0555 X-Rays, CTs and MRIs CT head: FINDINGS: Image quality: Excellent. CSF spaces: Basal cisterns are patent. No extra-axial fluid collections. Ventricles are normal in size and shape. Brain: No midline shift. No intracranial masses or hemorrhage. Garcia-white matter interface is normal. Skull and face: Calvarium and visualized facial bones are intact, without suspicious lesions. Code nasal bone fracture appears unchanged. Sinuses: Visualized sinuses and mastoids are clear. IMPRESSION: 1. No acute intracranial abnormalities. Dictated by: Nelson Virk M.D. on 08/22/2016 at 12:18 EDURE: CT CHEST, ABDOMEN AND PELVIS WITH CONTRAST ([id number]) INDICATIONS: fall, back pain, hypotension TECHNIQUE: After the administration of intravenous contrast, 5 mm thick sections acquired from the lung apices to the symphysis. 5 mm thick coronal and sagittal reformats were acquired. Additional 7 mm thick coronal maximum intensity projection (MIP) reformats acquired through the lungs. Optional 10-minute delayed imaging may be performed from the kidneys to the bladder. For radiation dose reduction, the following was used: automated exposure control, adjustment of mA and/or kV according to patient size. COMPARISON: None. FINDINGS: Image quality: Excellent. CHEST: Lungs: No pulmonary contusions or lacerations. No acute airspace opacities. No pneumothorax or hemothorax. Central and peripheral airways appear patent and normal in caliber. Mediastinum: No mediastinal hematomas. Heart size is normal. No pericardial effusion. Thoracic aorta and pulmonary arteries demonstrate normal size and enhancement. No mediastinal or hilar adenopathy. Esophagus is normal in caliber. No hiatal hernia. Chest wall: No rib fractures. No subcutaneous emphysema. No axillary or supraclavicular adenopathy. Thyroid gland is normal. ABDOMEN: Solid organs: Spleen is enlarged measuring 15 cm in length. Liver is normal in size and enhancement, without lacerations. Gallbladder is normal. Biliary system is non-dilated. Pancreas enhances normally, without transection. No adrenal hematomas. Both kidneys enhance normally, without hydronephrosis or lacerations. Peritoneum and bowel: Appendix is thickened measuring up to 11 mm in diameter. There is mild periappendiceal fat stranding and a trace amount of free fluid in the right lower quadrant. The CT findings suggest early acute appendicitis.. No free air. Unenhanced bowel loops demonstrate normal wall thickness and caliber. Nodes and vessels: No retroperitoneal or mesenteric adenopathy. Aorta and inferior vena cava are normal in size and enhancement. Miscellaneous: No ventral hernias. PELVIS: Genitourinary: Bladder wall thickness is normal. Miscellaneous: No inguinal hernias or adenopathy. Bones: Pelvic ring and hip joints appear intact. No vertebral compression fractures. IMPRESSION: 1. No traumatic injuries identified on CT. 2. Thickened appendix measuring up to 11 mm in diameter. There is mild periappendiceal stranding and a trace amount of free fluid in the right lower quadrant. The CT findings to suggest early acute appendicitis. Recommend clinical correlation. 3. Splenomegaly. This finding is nonspecific and may be secondary to infectious , inflammatory or neoplastic etiology. Recommend clinical correlation and follow up. Dictated by: Nelson Virk M.D. on 08/22/2016 at 12:27 12-lead ECG SR, TW flattening in lateral leads, borderline QTc Cardiac Echo Impressions 08/22 echo Interpretation Summary 1) Mild concentric left ventricular hypertrophy with normal size and borderline reduced systolic function (EF about 50%). 2) Normal right ventricular size and function. 3) Mild hypokinesis of the basal to mid anterolateral wall as noted by decreased endocardial thickening 4) No significant valvular abnormalities. 5) No prior Echo available for comparison. Assessment & Plan 50 yo male with hx of meth and tob use presenting to ER with shoulder pain/ positional cp with e/o NSTEMI NSTEMI, POA -heparin gtt dc'd 08/24 -Dr. Curran of cardiology on consult -trend troponins -pt took two ASA 325mg this AM -started atorvastatin 20mg 08/24 -cont asa 81mg started 08/24 -lipid panel wiht mod low HDL, rest ok -tsh ok -tele -nuclear exercise stress today R sided shoulder pain - s/p fall off roof, no sig weakness/focal neuro deficits -r shoulder xray today Methamphetamine use -Urine drug screen ordered Appendiceal abnormality on CT 08/22 which mentions early appendicitis -d/w radiology who recommends f/u scan in 1 mo - no clinical e/o acute appendicitis with no leukocystosis or abdominal tenderness at all Pain Evaluation: Adequate Pain Control GI Prophylaxis: H2 andreina VTE Prophylaxis: Other (on heparin gtt) Resuscitation Status: CPR: Attempt Resuscitation Time spent 30 minutes spent with eval and Benjamin Marquis DO Aug 24, 2016 15:09
--- NOTE | 2016-08-24 15:12 | PCM.CHPCAR ---
Consult Subjective Date of service Aug 24, 2016 Date of admit Aug 23, 2016 at 09:20 Provider Requesting Consult Primary Care Physician Primary Care Physician: [facility] Chief Complaint Troponin elevation History of Present Illness 50 yo M h/o prior smoking and ongong meth use admitted with troponin elevation noted as part of trauma evaluation. Patient states that he was having arthralgias, nausea, subjective fevers, diaphoresis, and rhinorrhea for the past week. On 08/19/2016, patient was working in a yard when he stood up too fast and fell on his left side. He started having back pain and shortness of breath. Back pain and dyspnea persisted for a few days and patient came to our emergency room for evaluation. As part of evaluation, he had a troponin checked that was elevated. He denies chest pain, palpitations, heart racing sensations, or syncope. Patient feels good and in fact left AGAINST MEDICAL ADVICE on 08/22/2016 from the emergency room because he felt he was not having heart attack. He came back the next day just to be sure and to be checked out. Since being admitted, patient has felt good and denies any symptoms except for mild back pain. His dyspnea has resolved. He is no longer having his arthralgias, diaphoresis, subjective fevers, or nausea. Review of Systems Review of Systems Per history of present illness and otherwise unremarkable PMH Past Medical History # Erectile dysfunction # Meth abuse: last use one week ago. Patient uses it to treat erectile dysfunction No Active Prescriptions or Reported Meds Current Inpatient Medications Current Medications Heparin Sodium (Porcine) Per Protocol for a... PRN PRN IVPUSH; Start 08/23/16 at 09:30; Stop 08/23/16 at 11:07; Status DC Al Hydrox/Mg Hydrox/Simethicone 30 ml Q6 PRN PO; Start 08/23/16 at 09:30; Stop 08/23/16 at 11:07; Status DC Ondansetron HCl Dose range: 4 mg to 8 mg Q4H PRN IVPUSH; Start 08/23/16 at 09:30 ; Stop 08/23/16 at 11:07; Status DC Acetaminophen 975 mg Q6H PRN PO; Start 08/23/16 at 09:30; Stop 08/23/16 at 11:07 ; Status DC Al Hydrox/Mg Hydrox/Simethicone 30 ml Q6H PRN PO; Start 08/23/16 at 10:50 Ondansetron HCl 4 to 8 mg Q4H PRN IVPUSH; Start 08/23/16 at 10:50 Senna 17.2 mg BID PRN PO; Start 08/23/16 at 10:50 Polyethylene Glycol 17 gm DAILY PRN PO; Start 08/23/16 at 10:50 Aspirin 81 mg DAILY PO Last administered on 08/24/16 09:01; Admin Dose 81 MG; Start 08/24/16 at 09:00 Atorvastatin Calcium 20 mg HS PO Last administered on 08/23/16 21:02; Admin Dose 20 MG; Start 08/23/16 at 21:00 Heparin Sodium (Porcine) Per Protocol for a... PRN PRN IVPUSH Last administered on 08/23/16 17:18; Admin Dose 5,000 UNIT; Start 08/23/16 at 11:00 Sodium Chloride 1,000 ml @ 100 mls/hr Q10H IV Last administered on 08/23/16 17: 23; Admin Dose 100 MLS/HR; Start 08/23/16 at 15:55; Stop 08/24/16 at 01:54; Status DC Allergies: Coded Allergies: No Known Allergies (Unverified , 08/23/16) Family History Family History No family history of early heart disease Social History Hx Alcohol Use: Yes (Not drinking any more)Hx Substance Use: Yes (Last use meth 1 week ago) Smoking Status: Former Smoker Exam Vital Signs Vital Sign - Last Date Time Temp Pulse Resp B/P Pulse Ox O2 Delivery O2 Flow Rate FiO2 08/24/16 10:00 36.9 89 22 95/62 96 Room Air Intake and Output 08/23/16 08/23/16 08/24/16 Cumulative From/Thru 15:00 23:00 07:00 08/23/16 07:18 - 08/24/16 06:23 Intake Total 1308 ml 1440 ml 2748 ml Balance 1308 ml 1440 ml 2748 ml Intake Oral 1075 ml 240 ml 1315 ml IV Total 233 ml 1200 ml 1433 ml # Voids 3 3 General appearance: No apparent distress, well-nourished, pleasant, cooperative HEET: Normocephalic atraumatic, no scleral icterus, tongue midline, mucous membranes moist Neck: supple, no bruit Cardiovascular: Distant heart sounds, RRR, normal S1 and normal S2, no murmurs/ rubs/gallops, PMI nondisplaced, no JVD, trace peripheral edema Respiratory: Good aeration, CTAB Abdomen: Soft, nontender, nondistended, + bowel sounds Neuro: Alert, no facial droop, tongue midline, able to walk down the hallway without any difficulty Psych: appropriate affect Skin: no rashes on face, neck, and lower extremities Lab and Diagnostics Labs Troponin 0.144 -> 0.098-> 0.0113 CK and Ck-MB normal Result Diagram: 08/24/16 0555 08/24/1655 X-Rays, CTs and MRIs Echo 08/22/2016: 1) Mild concentric left ventricular hypertrophy with normal size and borderline reduced systolic function (EF about 50%). 2) Normal right ventricular size and function. 3) Mild hypokinesis of the basal to mid anterolateral wall as noted by decreased endocardial thickening 4) No significant valvular abnormalities. 5) No prior Echo available for comparison. 12-lead ECG ECG: Sinus rhythm with non-specific ST changes Telemetry: No events since admission Assessment & Plan Assessment 50 yo M h/o prior smoking and ongoing meth abuse admitted with troponin elevation. # Troponin elevation: Patient has a troponin elevation that does not fit clinically or syndrome of acute coronary syndrome. His ECG is unremarkable and his CK CK-MB also normal. Suspect troponin elevation could be due to trauma related chest wall injury or related to meth use. He is asymptomatic from cardiac standpoint. His echocardiogram shows very subtle mild hypokinesis of the basal to mid anterolateral wall with LVEF about 50%. It is possible that his wall motion abnormality is an artifact based on poor endothelial visualization. His lipids are fairly benign as checked today. I spent significant time as the patient about his condition and answered his questions. Recommendations as below: - Stop heparin gtt - Treadmill sestamibi to rule out ischemia and to assess LV wall motion and perfusion # Left ventricular hypertrophy: Patient noted to have left ventricular hypertrophy on echocardiogram. Patient denies history of hypertension but does not see any doctors. I have asked him to see primary care provider to establish diagnosis of hypertension. Pressures in the hospital a borderline elevated. We will defer management of hypertension to outpatient. # Meth abuse: I spent significant time educating the patient and his about patient's need to stop using methamphetamines. Patient and know that this is harmful to his health. He states that he uses it to treat his erectile dysfunction. I as with the patient about need to enroll in primary care clinic and consider using Viagra instead of methamphetamine for erectile dysfunction treatment. I also educated them that ongoing methamphetamine use causes atherosclerotic disease that actually can cause erectile dysfunction long-term. Patient and understood and will work on it. Patient and also aware that stopping methamphetamine use will lower his blood pressure. # ED: see above # Smoking: congratulated on excess. Smoking cessation Thank you for the interesting consultation. If stress test is low risk study, patient can be discharged home today. Pain Evaluation: Adequate Pain Control VTE Prophylaxis: Other (on heparin gtt) Resuscitation Status: CPR: Attempt Resuscitation Zac Curran MD Aug 24, 2016 15:12
--- NOTE | 2016-08-24 15:47 | PCM.DC.MED ---
Discharge Summary Date of Service Aug 24, 2016 Dates of Hospitalization Date of Hospital Admission Aug 23, 2016 at 09:20 Date of Discharge: Aug 24, 2016 Providers: Admitting Physician: Benjamin Barrios DO [facility]ending Physician: Benjamin Barrios DO Diagnosis at Time of Discharge Diagnosis at Time of Discharge NSTEMI, POA R sided shoulder pain, likley bone contusion - s/p fall off roof, no sig weakness/focal neuro deficits Methamphetamine use Consultations Dr. Curran of cardiology: # Troponin elevation: Patient has a troponin elevation that does not fit clinically or syndrome of acute coronary syndrome. His ECG is unremarkable and his CK CK-MB also normal. Suspect troponin elevation could be due to trauma related chest wall injury or related to meth use. He is asymptomatic from cardiac standpoint. His echocardiogram shows very subtle mild hypokinesis of the basal to mid anterolateral wall with LVEF about 50%. It is possible that his wall motion abnormality is an artifact based on poor endothelial visualization. His lipids are fairly benign as checked today. I spent significant time as the patient about his condition and answered his questions. Recommendations as below: - Stop heparin gtt - Treadmill sestamibi to rule out ischemia and to assess LV wall motion and perfusion # Left ventricular hypertrophy: Patient noted to have left ventricular hypertrophy on echocardiogram. Patient denies history of hypertension but does not see any doctors. I have asked him to see primary care provider to establish diagnosis of hypertension. Pressures in the hospital a borderline elevated. We will defer management of hypertension to outpatient. # Meth abuse: I spent significant time educating the patient and his about patient's need to stop using methamphetamines. Patient and know that this is harmful to his health. He states that he uses it to treat his erectile dysfunction. I as with the patient about need to enroll in primary care clinic and consider using Viagra instead of methamphetamine for erectile dysfunction treatment. I also educated them that ongoing methamphetamine use causes atherosclerotic disease that actually can cause erectile dysfunction long-term. Patient and understood and will work on it. Patient and also aware that stopping methamphetamine use will lower his blood pressure. Procedures XRay, CTs & MRIs CT head: FINDINGS: Image quality: Excellent. CSF spaces: Basal cisterns are patent. No extra-axial fluid collections. Ventricles are normal in size and shape. Brain: No midline shift. No intracranial masses or hemorrhage. Garcia-white matter interface is normal. Skull and face: Calvarium and visualized facial bones are intact, without suspicious lesions. Code nasal bone fracture appears unchanged. Sinuses: Visualized sinuses and mastoids are clear. IMPRESSION: 1. No acute intracranial abnormalities. Dictated by: Nelson Virk M.D. on 08/22/2016 at 12:18 EDURE: CT CHEST, ABDOMEN AND PELVIS WITH CONTRAST ([id number]) INDICATIONS: fall, back pain, hypotension TECHNIQUE: After the administration of intravenous contrast, 5 mm thick sections acquired from the lung apices to the symphysis. 5 mm thick coronal and sagittal reformats were acquired. Additional 7 mm thick coronal maximum intensity projection (MIP) reformats acquired through the lungs. Optional 10-minute delayed imaging may be performed from the kidneys to the bladder. For radiation dose reduction, the following was used: automated exposure control, adjustment of mA and/or kV according to patient size. COMPARISON: None. FINDINGS: Image quality: Excellent. CHEST: Lungs: No pulmonary contusions or lacerations. No acute airspace opacities. No pneumothorax or hemothorax. Central and peripheral airways appear patent and normal in caliber. Mediastinum: No mediastinal hematomas. Heart size is normal. No pericardial effusion. Thoracic aorta and pulmonary arteries demonstrate normal size and enhancement. No mediastinal or hilar adenopathy. Esophagus is normal in caliber. No hiatal hernia. Chest wall: No rib fractures. No subcutaneous emphysema. No axillary or supraclavicular adenopathy. Thyroid gland is normal. ABDOMEN: Solid organs: Spleen is enlarged measuring 15 cm in length. Liver is normal in size and enhancement, without lacerations. Gallbladder is normal. Biliary system is non-dilated. Pancreas enhances normally, without transection. No adrenal hematomas. Both kidneys enhance normally, without hydronephrosis or lacerations. Peritoneum and bowel: Appendix is thickened measuring up to 11 mm in diameter. There is mild periappendiceal fat stranding and a trace amount of free fluid in the right lower quadrant. The CT findings suggest early acute appendicitis.. No free air. Unenhanced bowel loops demonstrate normal wall thickness and caliber. Nodes and vessels: No retroperitoneal or mesenteric adenopathy. Aorta and inferior vena cava are normal in size and enhancement. Miscellaneous: No ventral hernias. PELVIS: Genitourinary: Bladder wall thickness is normal. Miscellaneous: No inguinal hernias or adenopathy. Bones: Pelvic ring and hip joints appear intact. No vertebral compression fractures. IMPRESSION: 1. No traumatic injuries identified on CT. 2. Thickened appendix measuring up to 11 mm in diameter. There is mild periappendiceal stranding and a trace amount of free fluid in the right lower quadrant. The CT findings to suggest early acute appendicitis. Recommend clinical correlation. 3. Splenomegaly. This finding is nonspecific and may be secondary to infectious , inflammatory or neoplastic etiology. Recommend clinical correlation and follow up. Dictated by: Nelson Virk M.D. on 08/22/2016 at 12:27 ECG 12 Lead SR, TW flattening in lateral leads, borderline QTc Cardiac Echo Impression 08/22 echo Interpretation Summary 1) Mild concentric left ventricular hypertrophy with normal size and borderline reduced systolic function (EF about 50%). 2) Normal right ventricular size and function. 3) Mild hypokinesis of the basal to mid anterolateral wall as noted by decreased endocardial thickening 4) No significant valvular abnormalities. 5) No prior Echo available for comparison. Brief History 50 yo male with hx of methamphetamin and tobacco use presented to ER with peristent l back pain and R shoulder pain - with a recent traumatic hx of falling off a 10ft roof 4 days ago. Pt presented to ED yesterday with imaging including CT head/abd/pelvis - unremarkable/neg for fx but showed an elev troponin with an abnormal echo. Pt left AMA but states he returned because he wanted to be treated and he needs to think about his grandkids/kids. Pt denies other pertinent medical hx, denies f/c/cp/sob - did have previous nausea/ vomiting x 3 days approximately 1 week ago per pt but denies significant anginal sx. does have some LE edema, worse on the left - and last meth use was about 1 week ago. he denies IVDA, smokes meth approximately 7x/mo for >35 yrs. denies allergies to meds In the ER, ekg revealed some inf TW flattening and Q wave in V3, with a prev abnl echo yesterday. Pt took 2 full strength asa this morning but still rates his pain 8/10 in R shoulder and low back. Hospital Course 50 yo male with hx of meth and tob use presenting to ER with shoulder pain/ positional cp and elevated troponin admitted for NSTEMI Elevated troponin possibly 2/2 to chest wall injury sp trauma as opposed to cardiac etiology per cardiology service. -heparin gtt dc'd 08/24 -appreciate Dr. Curran's recs -troponin 0.144 -> 0.098-> 0.0113 -CK and Ck-MB normal -started atorvastatin 20mg 08/24--> will not continue at discharge if no e/o CAD on stress test -cont asa 81mg started 08/24 -lipid panel wiht mod low HDL, rest ok -tsh ok -tele, no events during admission -nuclear exercise stress today ---> will plan to dc pt if neg stress test R sided shoulder pain - s/p fall off roof, no sig weakness/focal neuro deficits -conservative mgmt and enc to establish a PCP at resident clinic, will ask to see if SW can help Chronic Methamphetamine use -educated by myself and cardiology regarding detrimental effects of use Appendiceal abnormality on CT 08/22 which mentions early appendicitis -d/w radiology who recommends f/u scan in 1 mo - no clinical e/o acute appendicitis with no leukocystosis or abdominal tenderness at all Exam Vital Signs (Last) Date Time Temp Pulse Resp B/P Pulse Ox O2 Delivery O2 Flow Rate FiO2 08/24/16 10:00 36.9 89 22 95/62 96 Room Air Exam Gen: nad, a/ox3 resting comfortably HEENT: edentulous on upper mouth, no ulcerations, or icteric sclera, no LAD Neck: no jvd noted, no thyromegaly or LAD CV: rr, no r/c/m/g - distant heart sounds Pulm: ctab no w/r/r Back: mild spinous tendernss in L3-L4 region - no ulcerations/step offs Extrem: 1+-2 pitting edema on L>R, sensation intact, pedal pulses 2+ b/l, warm Psych: soft spoken, mood and affect nl Neuro: cn 2-12 GI, no focal deficits Skin: scattered tattoos without ulcerations Test 08/23/16 07:39 08/23/16 12:32 08/24/16 05:55 08/24/16 10:11 Thyroid Stimulating Hormone (TSH) 1.540uIU/mL (0.450-4.500) Free Thyroxine 1.36ng/dL (0.82-1.77) Hemoglobin A1c 5.2% (4.8-5.6) White Blood Count 6.7th/mm3 (3.8-10.1) Red Blood Count 3.98mil/mm3 (4.40-5.80) Hemoglobin 11.1g/dL (13.8-17.2) Hematocrit 33.6% (41.0-50.0) Mean Corpuscular Volume 84.4fL (81-100) Mean Corpuscular Hemoglobin 27.9pg (27.0-35.0) Mean Corpuscular Hemoglobin Concent 33.0% (32.0-37.0) Red Cell Distribution Width 14.0% (12.3-15.4) Platelet Count 176bil/L (150-400) Neutrophils (%) (Auto) 63.1% (40-74) Lymphocytes (%) (Auto) 24.3% (14-46) Monocytes (%) (Auto) 9.1% (4-12) Eosinophils (%) (Auto) 2.5% (0-5) Basophils (%) (Auto) 0.7% (0-3) Sodium Level 140mEq/L (134-144) Potassium Level 3.8mEq/L (3.5-5.2) Chloride Level 105mEq/L (97-108) Carbon Dioxide Level 22mmol/L (18-29) Blood Urea Nitrogen 6mg/dL (6-24) Creatinine 0.59mg/dL (0.76-1.27) Estimat Glomerular Filtration Rate 155mL/min (>59) Glucose Level 125mg/dL (60-99) Calcium Level 7.7mg/dL (8.5-10.1) Magnesium Level 2.3mg/dL (1.6-2.6) Total Bilirubin 0.3mg/dL (0.0-1.2) Aspartate Amino Transf (AST/SGOT) 30U/L (0-50) Alanine Aminotransferase (ALT/SGPT) 29U/L (0-44) Alkaline Phosphatase 91U/L (25-150) Total Creatine Kinase 42U/L (21-232) Creatine Kinase MB < 1.0ng/mL (0.0-10.4) Creatine Kinase MB % % (0.0-5.0) Troponin T 0.113ug/L (0.0-0.011) Total Protein 5.6g/dL (6.4-8.4) Albumin 3.0g/dL (3.4-5.0) Triglycerides Level 80mg/dL (0-149) Cholesterol Level 135mg/dL (100-199) LDL Cholesterol, Calculated 87.000mg/dL (0-99) VLDL Cholesterol 16.000mg/dL HDL Cholesterol 32mg/dL (>39) Cholesterol/HDL Ratio 4.22 (0.0-4.4) Activated Partial Thromboplast Time 43.6sec (22.8-33.0) Discharge Medications No Active Prescriptions or Reported Meds Followup Plan Follow-up plan est care with a pcp - consider resident clinic Follow-up with PCP in: 2 weeks Time spent 40 minutes spent wiht eval/mgmt and discharge of pt. >50% spent face to face counseling and coordinating care Benjamin Barrios DO Aug 24, 2016 15:47
[2016-08-24 16:00] VITALS: BP 95/60; PULSE 86; RESP 20; O2SAT 95
--- NOTE | 2016-08-24 16:16 | DRSVH ---
PROCEDURE: 1 DAY PHARMACOLOGICAL STRESS TEST Rest and pharmacological stress myocardial perfusion SPECT with gated imaging and ejection fraction RADIOPHARMACEUTICAL: 9.1 mCi Tc-99m tetrafosmin IV at rest and 26.5 mCi Tc-99m tetrafosmin IV at peak effect of pharmacological stress. A [id number] was performed. INDICATIONS: 50-year-old man with acute coronary syndrome. The patient has hyperlipidemia, smoking a nd family history of coronary artery disease. Evaluate myocardial ischemia. TECHNIQUE: Radiopharmaceutical was injected at peak stress test, and also at rest. SPECT images wer e obtained. SPECT myocardial perfusion images were displayed in short axis, horizontal long axis, an d vertical long axis views. Gated images were reviewed using Videoflow software. COMPARISON: None. CARDIAC STRESS: The patient started on an exercise stress test using standard Cristopher protocol. The pa tient exercised for 5 minutes and 50 seconds with functional aerobic impairment (VAL) +42% and reache d 80% maximum predicted heart rate. The stress test was switched to Lexiscan infusion. A pharmacologic stress test was performed under the supervision of an attending staff, using an infus ion of Lexiscan. Hemodynamic data: There is normal blood pressure and heart rate response to pharmacologic stress. Symptoms: The patient denied anginal chest pain. Aminophylline: 100 mg IV EK mm ST depression in the inferolateral leads during recovery; no ectopy. FINDINGS: Raw data: There is good myocardial uptake of radiotracer. No significant motion artifacts. Left ventricle function: Gated images demonstrate normal left ventricular wall thickening. No segme ntal wall motion abnormalities. No transient ischemic dilation. Left ventricle resting end diastoli c volume is normal. Left ventricle stress ejection fraction is greater than 44%; normal range is abo ve 45%. Myocardial perfusion: There is normal distribution of activity in the right and left ventricular guy cardium. No fixed or reversible perfusion defects. IMPRESSION: 1. Normal myocardial perfusion images. No evidence for myocardial ischemia or infarct. 2. Normal left ventricular volume. There is borderline decreased left ventricular systolic function. 3. Severely limited exercise capacity with the patient achieving 80% maximum predicted heart rate on Cristopher protocol. The stress test was switched to Lexiscan fusion. 4. No chest pain. Abnormal EKG with [address] depression in inferolateral leads during recovery post Le xiscan infusion. PQRS ATTESTATIONS: Measure 322 - Is this imaging test primarily performed on a low-risk surgery patient for preoperative evaluation within 30 days preceding their low-risk non-cardiac surgery? Low-risk surgery is defined as cardiac or myocardial infarction less than 1%, including (but not limited to) endoscopic pr ocedures, superficial procedures, cataract surgery, and excisional breast surgery: Answer: No Measure 323 - Is this imaging test performed primarily for the monitoring of an asymptomatic patient who had percutaneous coronary intervention on the visit date or within 2 years of the visit date? An swer: No Measure 324 - Is this imaging test performed primarily for the initial detection and risk assessment on an asymptomatic, low coronary heart disease patient? Low CHD risk definition = clinicians should consider the maximum number of available patient factors used to estimate risk based on [place] (A TP III criteria), typically age, gender, diabetes, smoking status, and use of blood pressure medicati on, and integrate age appropriate estimates for missing elements, such as LDL or standard blood press ure. Answer: No Dictated by: Nelson Virk M.D. on 08/24/2016 at 16:04 Approved by: Nelson Virk M.D. on 08/24/2016 at 16:15
--- NOTE | 2016-08-24 16:20 | NUR ---
Social Work Note - Chemical Dependency Screening/Readiness for Discharge: The Pt is a 50 y/o male that was admitted for ACS. SW met with the Pt to complete Chemical Dependency Screening due to reported methamphetamine use. Pt Name: Jules Tejeda Current Circumstances/Reason for Referral: Reported drug use History of Substance Use: The Pt reports that he has been using methamphetamine for the last 30+ years, most recent use was about one week ago. History of Tx Programs: The Pt reported that he was involved with [facility] services about 15-20 years ago which were unsuccessful. History of WD Symptoms: None reported. Family History: None reported. History of Sobriety and Supports: None reported. Patients Perception of Use and Contemplation for Change: Pt did not want to explore this question. Suicide Risk: The Pt does not endorse any SI/HI concerns at this time. The Pt denies any needs at this time, SW to follow if needs arise. P: The Pt to will likely discharge home today via family POV. CD Screening completed, CD/MH resource lists provided. No concerns for SI/HI reported. The Pt denies any needs at this time, SW to follow if needs arise. JEREMIAH Eugene Label Printer Addendum: 08/24/16 at 1627 by MARELY FRENCH SS JEREMIAH Jenkins
--- NOTE | 2016-08-24 16:35 | PCM.DIMED ---
Discharge Instructions Date of Service Aug 24, 2016 Dates of Hospitalization Aug 23, 2016 at 09:20 Discharge Diagnosis Discharge Diagnosis elev troponin likely 2/2 to chest wall injury from trauma as noted below R sided shoulder pain, likley bone contusion - s/p fall off roof, no sig weakness/focal neuro deficits Methamphetamine use Medication Instructions no add'l meds now meth cessation counseling executed Test Results no specific indication of CAD on treadmill/nuclear stress Diet Heart Healthy Activity No restrictions Call your provider Chest pain (or return to the ER if having worsening shortness of breath or chest pain) Patient Instructions there was no evidence of heart disease on your current exercise stress test. please do not use methamphetamine as it causes an incredibly high risk of stroke and heart attack It is very important to establish care with a Primary care doctor. Please call the [place] resident clinic to establish care. Follow-up plan est care with a pcp - consider resident clinic Follow-up with PCP in: 2 weeks Benjamin Barrios DO Aug 24, 2016 16:35
== END 2016-08-24 19:52 | disposition home or self-care (01) | DRG 190 ==
LOC: SED 07:16 → MOC 09:20
PROVIDERS: ADMIT Internal Medicine; ATTEND Internal Medicine
DX: I21.4 Non-ST elevation (NSTEMI) myocardial infarction (principal); M25.511 Pain in right shoulder; Z87.891 Personal history of nicotine dependence

== ENCOUNTER 2016-09-26 08:58 | Emergency (ER) | payer OTHER ==
[~2016-09-26] VITALS: Ht 182.9 cm; Wt 86.4 kg
[2016-09-26 09:01] VITALS: BP 137/93; PULSE 92; RESP 18; O2SAT 100
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
[2016-09-26 09:20] VITALS: BP 138/72; PULSE 90; RESP 20; O2SAT 95
[2016-09-26 09:31] LABS: BASOPHILS % (AUTO) 0.9 % (0-3); EOSINOPHILS % (AUTO) 3.6 % (0-5); MONOCYTES % (AUTO) 12.7 % (4-12); Mean Corpuscular Volume 85.3 fL (81-100); NEUTROPHILS % (AUTO) 54.7 % (40-74); Platelet Count 249 bil/L (150-400)
[2016-09-26 09:52] LABS: TROPONIN T 0.01 ug/L (0.0-0.011)
[2016-09-26 09:56] VITALS: BP 135/83; PULSE 99; RESP 22; O2SAT 100
[2016-09-26] MEDS ORDERED: Potassium Chloride 20 mEq/15 mL 15mL Oral Soln PO ONE (12:00)
[2016-09-26 12:06] VITALS: BP 107/56; PULSE 96; RESP 17; O2SAT 99
[2016-09-26 14:40] VITALS: BP 122/83; PULSE 77; RESP 16; O2SAT 99
== END 2016-09-26 15:15 | disposition home or self-care (01) ==
LOC: SED 08:58
DX: R07.9 Chest pain, unspecified (principal); F15.20 Other stimulant dependence, uncomplicated; M79.1 Myalgia; R06.02 Shortness of breath; R20.2 Paresthesia of skin; I25.2 Old myocardial infarction; J45.909 Unspecified asthma, uncomplicated; Z87.891 Personal history of nicotine dependence; Z79.82 Long term (current) use of aspirin

== ENCOUNTER 2016-10-12 12:18 | Emergency (ER) | payer OTHER ==
[~2016-10-12] VITALS: Ht 182.9 cm; Wt 88.6 kg
[2016-10-12 12:21] VITALS: BP 133/89; PULSE 96; RESP 18; O2SAT 97
--- NOTE | 2016-10-12 12:55 | DRSVH ---
PROCEDURE: X-RAY CHEST ONE VIEW, PORTABLE ([id number]) INDICATIONS: CHEST PAIN TECHNIQUE: One view of the chest was acquired. COMPARISON: [facility], CR, XR CHEST 1VW (PORTABLE), 08/23/2016, 7:22. FINDINGS: Surgical changes and devices: None. Lungs and pleura: No pleural effusions or pneumothorax. Lungs are clear. Mediastinum: Mediastinal contours appear normal. Heart size is normal. Bones and chest wall: No suspicious bony lesions. Overlying soft tissues appear unremarkable. IMPRESSION: No acute disease Dictated by: Stas Schaeffer M.D. on 10/12/2016 at 12:52 Approved by: Stas Schaeffer M.D. on 10/12/2016 at 12:53
--- NOTE | 2016-10-12 12:57 | ED.REPORT ---
HPI-Chest Pain 40 and Over Date of Service October 12, 2016 ED Provider: Osbaldo Solis MD 50 year old male with a history of elevated troponin and methamphetamine abuse presents to the ER accompanied by a female cargo vessel stewardess complaining of intermittent substernal chest pain onset several days ago, recurring today. Associated bilateral foot pain, swelling, and numbness, that prevents him from ambulating. Patient denies fever, nausea, vomiting, and any other symptoms of current illness. He takes ranitidine, loratadine, and ASA daily, and he has prescribed albuterol inhalers. Recent stress test from 08/2016 did not indicate signs of myocardial infarction. He reports that he was recently turned away from the residency clinic because his insurance is not accepted there, which is the reason for his ER visit today. Nursing Notes Stated Complaint: CHEST PAIN/FEET PAIN/DIFFICULTY WALKING Chief Complaint: Chest Pain Nursing Notes Reviewed: Yes Allergies: Coded Allergies: No Known Allergies (Unverified , 08/23/16) No Active Prescriptions or Reported Meds General Time Seen by MD: 12:57 Chief Complaint Chest pain Hx Obtained From: Patient Arrived By: Walk-in Sudden in Onset?: No Onset Occurred: 4 days ago ("several days ago") Symptom Duration: Since onset Location: : Substernal Quality: Painful Radiation: : Does not radiate Severity: Current: Moderate Severity: Maximum: Moderate Pertinent Negative: Pt denies other symptoms Similar Sx Previous: Yes Past Medical History Past Medical History No evidence of coronary artery disease. chest pain Negative stress test August 2016; negative echo August 2016. Foot pain Denies: Coronary artery disease, Diabetes mellitus Past Surgical History L arm Smoking History Former Smoker Social History Alcohol Use: In recovery Drug Use: Meth Ambulatory Status Independent Review of Systems Constitutional: Denies: Chills, Fever Respiratory: Denies: Non-productive cough Cardiovascular: Reports: Chest pain GI: Denies: Abdominal pain, Diarrhea, Nausea, Vomiting Musculoskeletal: Reports: Extremity pain (Feet, bilaterally) Complete sys rev & neg: except as marked. Physical Exam Initial Vital Signs Vital Signs (First) Date Time Temp Pulse Resp B/P Pulse Ox O2 Delivery O2 Flow Rate FiO2 10/12/16 12:21 36.2 96 18 133/89 97 Room Air Initial VS: Reviewed Head / Eyes: Atraumatic, Normocephalic Neck: Supple, Non-tender, Full range of motion Extremities: Vascular intact, Neuro intact, No swelling, No tenderness Skin: Warm, Dry, No cyanosis Neurologic: Alert, Oriented, Nonfocal General/Constitutional: Awake, Alert, Well developed, Well nourished Respiratory / Chest: Breath sounds NL, Breath sounds = bilat, No respiratory distress, No rales, No rhonchi, No wheezing, No stridor, No chest tenderness Cardiovascular: Heart rate NL, Regular rhythm, Heart sounds NL, No murmurs, Peripheral circulation NL, Pulses = bilaterally, No gross BP differential Ankle / Foot: Full range of motion, No swelling, Neurologic intact, Vascular intact Hypersensitivity of the feet, bilaterally. Interpretation & Diagnostics Lab Results Interpretation Result Diagram: 10/12/16 1245 10/12/16 1245 Test 10/12/16 12:45 White Blood Count 6.0th/mm3 (3.8-10.1) Red Blood Count 4.69mil/mm3 (4.40-5.80) Hemoglobin 13.5g/dL (13.8-17.2) Hematocrit 39.6% (41.0-50.0) Mean Corpuscular Volume 84.4fL (81-100) Mean Corpuscular Hemoglobin 28.8pg (27.0-35.0) Mean Corpuscular Hemoglobin Concent 34.1% (32.0-37.0) Red Cell Distribution Width 13.5% (12.3-15.4) Platelet Count 251bil/L (150-400) Neutrophils (%) (Auto) 63.8% (40-74) Lymphocytes (%) (Auto) 22.1% (14-46) Monocytes (%) (Auto) 9.9% (4-12) Eosinophils (%) (Auto) 3.2% (0-5) Basophils (%) (Auto) 0.7% (0-3) Sodium Level 140mEq/L (134-144) Potassium Level 3.5mEq/L (3.5-5.2) Chloride Level 101mEq/L (97-108) Carbon Dioxide Level 24mmol/L (18-29) Blood Urea Nitrogen 12mg/dL (6-24) Creatinine 0.77mg/dL (0.76-1.27) Estimat Glomerular Filtration Rate 114mL/min (>59) Glucose Level 120mg/dL (60-99) Calcium Level 9.0mg/dL (8.5-10.1) Magnesium Level 2.1mg/dL (1.6-2.6) Total Bilirubin 0.6mg/dL (0.0-1.2) Aspartate Amino Transf (AST/SGOT) 15U/L (0-50) Alanine Aminotransferase (ALT/SGPT) 13U/L (0-44) Alkaline Phosphatase 105U/L (25-150) Troponin T < 0.010ug/L (0.0-0.011) Total Protein 7.1g/dL (6.4-8.4) Albumin 3.8g/dL (3.4-5.0) ECG Interpretation ECG Interpretation: Sinus rhythm, rate 81 Time: 12:49 Interpreted by: ED physician X-Ray Chest Interpretation Chest Xray Interpretation: IMPRESSION: No acute disease Dictated by: Stas Schaeffer M.D. on 10/12/2016 at 12:52 Approved by: Stas Schaeffer M.D. on 10/12/2016 at 12:53 View: Portable, 1 view Interpretation / Wet Read by: Interpret - Radiologist Re-Eval/Medical Decision Med Decision/Clinical Course I explained to the patient and some great detail that the detailed workup he had last month was reassuring and that there is no evidence of coronary artery disease. I did my best to explain in simple terms. Regarding his foot pain I believe it is probably some sort of neuropathy there is certainly no current infection, trauma, and vascular insufficiency and I therefore think outpatient follow-up for this is appropriate. Source of Hx: Old records Time of Eval: 13:20 Re-Evaluation/Progress Note: Discussed lab and imaging results and plan to discharge. Patient is amenable to the plan. Return precautions given. All other questions addressed. Counseled Regarding: Diagnosis, Lab results, Need for follow-up, When/why to return to ED Discharge & Departure Primary Impression: Chest pain Chest pain type: unspecified Qualified Code: R07.9 - Chest pain, unspecified Additional Impression: Foot pain, bilateral Disposition: Home Discharge Condition All VS Reviewed: Yes Condition: Stable Patient Instructions: Chest Pain (ED) Additional Instructions: Take the gabapentin as prescribed. If your foot pain is nerve related, this medication should improve your pain over the next few days. Be patient, it will take some time to have an effect. I have written you a work note, but if you find that the medication is effective in relieving your pain then feel free to return to work. Activity as tolerated. I have made you an appointment with Dr. Peyton Anderson for October 14, at 10:45 a.m. Return to the ER if you develop new or worsening symptoms. Referrals: Chriss Rocha DO (PCP) Peyton Anderson MD Attestation Portions of this note were transcribed by Piero Dawson. I, Dr. Solis, personally performed the history, physical exam and medical decision-making; I reviewed and confirmed the accuracy of the information in the transcribed note. Signed by: Geraldo Sethi, 10/12/2016 at 14:10 copies to: Chriss Rocha DO; Peyton Anderson MD, Kirk H MD October 12, 2016 12:57 PIERO DAWSON October 12, 2016 13:07
[2016-10-12 13:13] LABS: BASOPHILS % (AUTO) 0.7 % (0-3); EOSINOPHILS % (AUTO) 3.2 % (0-5); MONOCYTES % (AUTO) 9.9 % (4-12); Mean Corpuscular Hemoglobin 28.8 pg (27.0-35.0); Mean Corpuscular Volume 84.4 fL (81-100); NEUTROPHILS % (AUTO) 63.8 % (40-74); Platelet Count 251 bil/L (150-400)
[2016-10-12 13:29] LABS: TROPONIN T < 0.010 ug/L (0.0-0.011)
[2016-10-12 13:34] LABS: Magnesium 2.1 mg/dL (1.6-2.6)
[2016-10-12] MEDS ORDERED: GABA-502 PO (14:14)
[2016-10-12 14:15] VITALS: BP 120/62; PULSE 78; RESP 18; O2SAT 100
[2016-10-12 14:28] VITALS: BP 120/62; PULSE 78; RESP 18; O2SAT 100
== END 2016-10-12 14:10 | disposition home or self-care (01) ==
LOC: SED 12:18
DX: R07.9 Chest pain, unspecified (principal); M79.671 Pain in right foot; M79.672 Pain in left foot; F15.10 Other stimulant abuse, uncomplicated; Z87.891 Personal history of nicotine dependence; Z79.82 Long term (current) use of aspirin